=== PATIENT | female | born 1965 | race Native Hawaiian/Other Pacific Islander ===

== ENCOUNTER 2019-04-15 22:00 | Emergency (ER) | payer OTHER ==
[2019-04-16] MEDS ORDERED: NACL 0.9% 1000 ML 1,000 ML IV ONE ×2 (03:28→07:10)
[2019-04-16] MEDS ORDERED: MORPHINE IV ONE (03:28)
[2019-04-16] MEDS ORDERED: ZOFRAN IV ONE ×2 (03:28→07:10)
[2019-04-16 04:57] LABS: Basophils # (Auto) 0.1 K/mm3 (0.0-0.1); Basophils % (Auto) 0.4 % (0.0-1.8); Eosinophils % (Auto) 0.1 % (0.0-4.3); Hematocrit 39.8 % (30.3-42.9); Hemoglobin 12.8 gm/dl (10.1-14.3); Lymphocytes # (Auto) 1.1 K/mm3 (1.2-5.4); Lymphocytes % (Auto) 7.8 % (13.4-35.0); Mean Corpuscular HGB Conc 32 % (30-34); Mean Corpuscular Volume 84 fl (79-97); Monocytes # (Auto) 0.8 K/mm3 (0.0-0.8); Monocytes % (Auto) 5.4 % (0.0-7.3); Platelet Count 282 K/mm3 (140-440); Red Blood Count 4.74 M/mm3 (3.65-5.03); Red Cell Distribution Width 14.5 % (13.2-15.2)
[2019-04-16 05:32] LABS: Alanine Aminotransferase 14 units/L (7-56); Albumin 4.5 g/dL (3.9-5); BUN/Creatinine Ratio 34; Blood Urea Nitrogen 17 mg/dL (7-17); Calcium 9.3 mg/dL (8.4-10.2); Hemolysis Index 67
--- NOTE | 2019-04-16 05:57 | Cat Scan Report ---
PROCEDURE: CT ABDOMEN PELVIS W CON TECHNIQUE: Computerized axial tomography of the abdomen and pelvis was performed after the IV inject ion of iodinated nonionic contrast. CT DOSE LENGTH PRODUCT: mGycm HISTORY: abdominal pain, N/V COMPARISONS: None . FINDINGS: Visualized lower thorax: No significant abnormality. Liver: Normal size and attenuation. Spleen: Normal size and attenuation. Gallbladder and biliary system: Normal. Pancreas: Normal. Adrenals: Normal. Kidneys: There is moderate right-sided hydronephrosis with perinephric stranding secondary to a parti ally obstructing ovoid stone at the L4-5 level measuring 8 mm in diameter and 10 mm in length. There are no additional renal stones. The left kidney reveals a 1.7 cm benign cyst centrally.. GI tract: The bowel loops are normal in caliber and course. There is an anastomotic suture line and left-sided the abdomen. The appendix is not enlarged. . Lymph nodes and mesentery: Normal. Vasculature: Normal.. Bladder: Normal. Reproductive organs: Normal. Peritoneum: Hysterectomy.. Musculoskeletal structures: There is multilevel disc degeneration in the lower thoracic and lumbar sp ine.. Other: None . IMPRESSION: Moderate right-sided hydronephrosis secondary to a partially obstructing stone at the L4-5 level eva uring 8 mm in width and 10 mm in length. Normal appendix. Hysterectomy. 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 This document is electronically signed by Kj Perez MD., April 16 2019 05:55:03 AM ET
[2019-04-16] MEDS ORDERED: FLOMAX PO ONE (06:10)
[2019-04-16] MEDS ORDERED: ROCEPHIN/NS 1 GM/50 ML 1 GM/50 ML BAG IV ONE (06:10)
--- NOTE | 2019-04-16 06:42 | Emergency Department Report ---
<NITHIN IBARRA - Last Filed: 04/16/19 07:12> ED Abdominal Pain HPI - General Chief Complaint: Abdominal Pain Stated Complaint: Right flank pain that radiates to RLQ, Nausea and vomiting Time Seen by Provider: 04/16/19 03:20 Source: patient, family (daughter) Mode of arrival: Ambulatory Limitations: Language Barrier (daughter speaking for the patient) - History of Present Illness Initial Comments: Per family, patient is a 54-year-old female with a history of hypertension and hypothyroidism who presents to the ED with a complaint of acute onset persistent severe right flank pain that radiates to the right lower quadr ant and suprapubic area with persistent intermittent nausea and vomiting for the last 12 hours. Family states that the patient has not been able to keep anything down since the onset of symptoms, and that the patient's pain has worsened today and sent the patient has been crying and doubling down. Per family, patient has not had any dysuria, hematuria, urinary frequency and urgency, diarrhea, dizziness, headache, chest pain, shortness of breath, fever, chills, change in vision, traumatic injury, vaginal discharge, numbness and tingling of her lower extremities bilaterally or change in vision. MD Complaint: abdominal pain, flank pain (right flank) -: Sudden, hour(s) (12) Location: RLQ, suprapubic, R flank Radiation: RLQ, suprapubic, R flank Migration to: no migration Severity: severe Severity scale (0 -10): 8 Quality: cramping, aching, sharp Consistency: constant Improves With: nothing Worsens With: vomiting, movement Associated Symptoms: nausea, vomiting. denies: diarrhea, fever, chills, constipation, dysuria, hematemesis, hematochezia, melena, hematuria, anorexia, syncope - Related Data Home Medications Medication Instructions Recorded Confirmed Last Taken Levothyroxine Sodium [Synthroid] 200 mcg PO QAM 04/16/19 04/16/19 Unknown Losartan [Cozaar] 25 mg PO QDAY 04/16/19 04/16/19 Unknown Previous Rx's Medication Instructions Recorded Last Taken Type Ketorolac [Toradol] 10 mg PO Q6H PRN #12 tablet 04/16/19 Unknown Rx Ondansetron [Zofran Odt] 4 mg PO Q8HR PRN #20 tab.rapdis 04/16/19 Unknown Rx Sulfamethoxazole/Trimethoprim 1 each PO BID #14 tablet 04/16/19 Unknown Rx [Bactrim DS TAB] Tamsulosin [Flomax] 0.4 mg PO QDAY #5 cap 04/16/19 Unknown Rx oxyCODONE /ACETAMINOPHEN [Percocet 1 tab PO Q6HR PRN #12 tablet 04/16/19 Unknown Rx 5/325] Allergies Allergy/AdvReac Type Severity Reaction Status Date / Time No Known Allergies Allergy Verified 04/16/19 02:44 ED Review of Systems Constitutional: denies: chills, fever Eyes: denies: eye pain, eye discharge, vision change ENT: denies: ear pain, throat pain Respiratory: denies: cough, shortness of breath, wheezing Cardiovascular: denies: chest pain, palpitations Endocrine: no symptoms reported Gastrointestinal: abdominal pain (right flank), nausea, vomiting. denies: diarrhea, constipation, hematemesis Genitourinary: denies: urgency, dysuria, discharge Musculoskeletal: denies: back pain, joint swelling, arthralgia Skin: denies: rash, lesions Neurological: denies: headache, weakness, paresthesias Psychiatric: denies: anxiety, depression Hematological/Lymphatic: denies: easy bleeding, easy bruising ED Past Medical Hx - Past Medical History Previous Medical History?: Yes Hx Hypertension: Yes Additional medical history: Hypothyroidism - Medications Home Medications: Home Medications Medication Instructions Recorded Confirmed Last Taken Type Ketorolac [Toradol] 10 mg PO Q6H PRN #12 tablet 04/16/19 Unknown Rx Levothyroxine Sodium [Synthroid] 200 mcg PO QAM 04/16/19 04/16/19 Unknown History Losartan [Cozaar] 25 mg PO QDAY 04/16/19 04/16/19 Unknown History Ondansetron [Zofran Odt] 4 mg PO Q8HR PRN #20 tab.rapdis 04/16/19 Unknown Rx Sulfamethoxazole/Trimethoprim 1 each PO BID #14 tablet 04/16/19 Unknown Rx [Bactrim DS TAB] Tamsulosin [Flomax] 0.4 mg PO QDAY #5 cap 04/16/19 Unknown Rx oxyCODONE /ACETAMINOPHEN [Percocet 1 tab PO Q6HR PRN #12 tablet 04/16/19 Unknown Rx 5/325] ED Physical Exam - General Limitations: Language Barrier (Daughter present in the room and translating Micronesian for the patient into [place]) General appearance: alert, in no apparent distress - Head Head exam: Present: atraumatic, normocephalic, normal inspection - Eye Eye exam: Present: normal appearance, PERRL, EOMI. Absent: scleral icterus, conjunctival injection, nystagmus, periorbital swelling, periorbital tenderness Pupils: Present: normal accommodation - ENT ENT exam: Present: normal exam, normal orophraynx, mucous membranes moist, TM's normal bilaterally, normal external ear exam - Neck Neck exam: Present: normal inspection, full ROM. Absent: tenderness, lymphadenopathy - Respiratory Respiratory exam: Present: normal lung sounds bilaterally. Absent: respiratory distress, wheezes, rales, rhonchi, chest wall tenderness, accessory muscle use, prolonged expiratory - Cardiovascular Cardiovascular Exam: Present: regular rate, normal rhythm, normal heart sounds. Absent: systolic murmur, diastolic murmur, rubs, gallop - GI/Abdominal GI/Abdominal exam: Present: soft, tenderness (Right flank, RLQ tenderness), guarding, normal bowel sounds. Absent: distended, rebound, hyperactive bowel sounds, hypoactive bowel sounds, organomegaly, bruit, pulsatile mass - Rectal Rectal exam: Present: deferred - Extremities Exam Extremities exam: Present: normal inspection, full ROM, normal capillary refill - Back Exam Back exam: Present: normal inspection, tenderness (lumbosacral area tenderness). Absent: CVA tenderness (L), muscle spasm, paraspinal tenderness, vertebral tenderness - Neurological Exam Neurological exam: Present: alert, oriented X3, CN II-XII intact, normal gait, reflexes normal - Psychiatric Psychiatric exam: Present: normal affect, normal mood - Skin Skin exam: Present: warm, dry, intact, normal color. Absent: rash ED Course - Reevaluation(s) Reevaluation #1: 04/16/19 06:46 Patient is alert and oriented 3 and is not in any distress but pain. Vital signs are stable. Lab test results were reviewed and shows acute leukocytosis of 14,700, the rest of the lab test results are unremarkable. Abdomen pelvis CT scan with contrast shows a moderate right sided hydronephrosis with perinephric stranding secondary to a partially obstructing ovoid stone at the L4 to L5 level measuring 8 mm in width and 10 mm in length. No additional. The left kidney reveals a 1.7 cm benign cyst centrally. The appendix appears normal. Patient was treated for pain, also treated for nausea and vomiting, and also given Flomax 0.4 mg by mouth; and 1 L normal saline IV bolus in the ED and urinalysis results are pending. On reevaluation, patient's pain is well-controlled at this time. Pending urinalysis results patient case will be discussed with the urologist regional education manager for further disposition and plan. ED Medical Decision Making - Lab Data Result diagrams: 04/16/19 04:18 04/16/19 04:18 - Medical Decision Making Patient is alert and oriented 3 and is not in any distress but pain. Vital signs are stable. Lab test results were reviewed and shows acute leukocytosis of 14,700, the rest of the lab test results are unremarkable. Abdomen pelvis CT scan with contrast shows a moderate right sided hydronephrosis with perinephric stranding secondary to a partially obstructing ovoid stone at the L4 to L5 level measuring 8 mm in width and 10 mm in length. No additional. The left kidney reveals a 1.7 cm benign cyst centrally. The appendix appears normal. Patient was treated for pain, also treated for nausea and vomiting, and also given Flomax 0.4 mg by mouth; and 1 L normal saline IV bolus in the ED and urinalysis results are pending. On reevaluation, patient's pain is well-controlled at this time. Pending urinalysis results patient case will be discussed with the urologist regional education manager for further disposition and plan. 04/16/19 07:12 Patient care transferred to my colleague Ms. Vitaliy MERINO at shift change. She shall review the UA test results page the Urologist regional education manager, for possible admission. ED Disposition Clinical Impression: Acute abdominal pain in right flank, Nausea and vomiting in adult patient, Calculus of right kidney Disposition: - TO HOME OR SELFCARE Condition: Stable Instructions: Abdominal Pain (ED) Additional Instructions: Increase fluid intake to 2 L per day. Change diet to low-protein and a low-sodium diet to prevent reoccurrence. Strain urine to observe for passing stones. Follow-up with primary care doctor in 2-3 days. Follow-up with urology in 1-2 weeks for management of kidney stones. Prescriptions: Sulfamethoxazole/Trimethoprim [Bactrim DS TAB] 1 each PO BID #14 tablet Tamsulosin [Flomax] 0.4 mg PO QDAY #5 cap oxyCODONE /ACETAMINOPHEN [Percocet 5/325] 1 tab PO Q6HR PRN #12 tablet PRN Reason: Pain Ketorolac [Toradol] 10 mg PO Q6H PRN #12 tablet PRN Reason: Pain Ondansetron [Zofran Odt] 4 mg PO Q8HR PRN #20 tab.rapdis PRN Reason: Nausea Referrals: KAYLYN MARIANO MD [Primary Care Provider] - 3-5 Days DERRELL RICCI MD [Staff Physician] - 3-5 Days [facility] [Provider Group] - 3-5 Days Forms: Accompanied Note, Work/School Release Form(ED) <CHACKOARTEMIO TIA'SA - Last Filed: 04/16/19 09:01> ED Review of Systems ROS: Stated complaint: Right flank pain that radiates to RLQ, Nausea and vomiting Other details as noted in HPI ED Course - Reevaluation(s) Reevaluation #2: 04/16/19 08:05 Patient was received from [facility] pending urinalysis. The CT of abdomen and pelvis with contrast shows moderate right-sided hydronephrosis with perinephric stranding secondary to a partially obstructing ovoid stone at L4 to L5 level measuring 8 mm in width and 10 mm in length. A urinalysis is showing a urinary tract infection. The patient has been hydrated with normal saline 2 L of IV and given Rocephin 1 g IV while in the ER. I have paged urology and pending response. 04/16/19 08:06 04/16/19 08:[address] Ricci, Urology and stated patient is stable for outpatient surgery. Patient kidney function is normal. ED Medical Decision Making - Lab Data Result diagrams: 04/16/19 04:18 04/16/19 04:18 Lab Results 04/16/19 04/16/19 04/16/19 Range/Units 04:18 04:18 06:20 WBC 14.7 H (4.5-11.0) K/mm3 RBC 4.74 (3.65-5.03) M/mm3 Hgb 12.8 (10.1-14.3) gm/dl Hct 39.8 (30.3-42.9) % MCV 84 (79-97) fl MCH 27 L (28-32) pg MCHC 32 (30-34) % RDW 14.5 (13.2-15.2) % Plt Count 282 (140-440) K/mm3 Lymph % (Auto) 7.8 L (13.4-35.0) % [place] % (Auto) 5.4 (0.0-7.3) % Eos % (Auto) 0.1 (0.0-4.3) % Baso % (Auto) 0.4 (0.0-1.8) % Lymph # 1.1 L (1.2-5.4) K/mm3 [place] # 0.8 (0.0-0.8) K/mm3 Eos # 0.0 (0.0-0.4) K/mm3 Baso # 0.1 (0.0-0.1) K/mm3 Seg Neutrophils % 86.3 H (40.0-70.0) % Seg Neutrophils # 12.7 H (1.8-7.7) K/mm3 Sodium 142 (137-145) mmol/L Potassium 4.0 (3.6-5.0) mmol/L Chloride 104.4 (98-107) mmol/L Carbon Dioxide 21 L (22-30) mmol/L Anion Gap 21 mmol/L BUN 17 (7-17) mg/dL Creatinine 0.5 L (0.7-1.2) mg/dL Estimated GFR > 60 ml/min BUN/Creatinine Ratio 34 % Glucose 125 H (65-100) mg/dL Calcium 9.3 (8.4-10.2) mg/dL Total Bilirubin 0.50 (0.1-1.2) mg/dL AST 27 (5-40) units/L ALT 14 (7-56) units/L Alkaline Phosphatase 148 H (35-129) units/L Troponin T < 0.010 (0.00-0.029) ng/mL Total Protein 7.6 (6.3-8.2) g/dL Albumin 4.5 (3.9-5) g/dL Albumin/Globulin Ratio 1.5 % Lipase 14 (13-60) units/L Urine Color Yellow (Yellow) Urine Turbidity Slightly-cloudy (Clear) Urine pH 6.0 (5.0-7.0) Urine Protein <15 mg/dl (Negative) mg/dL Urine Glucose (UA) Neg (Negative) mg/dL Urine Ketones Neg (Negative) mg/dL Urine Blood Mod (Negative) Urine Nitrite Pos (Negative) Urine Bilirubin Neg (Negative) Urine Urobilinogen < 2.0 (<2.0) mg/dL Ur Leukocyte Esterase Lg (Negative) Urine WBC (Auto) 156.0 H (0.0-6.0) /HPF Urine RBC (Auto) 10.0 (0.0-6.0) /HPF U Epithel Cells (Auto) 1.0 (0-13.0) /HPF Urine Bacteria (Auto) 1+ (Negative) /HPF Urine Mucus Few /HPF - Radiology Data Radiology results: report reviewed PROCEDURE: CT ABDOMEN PELVIS W CON TECHNIQUE: Computerized axial tomography of the abdomen and pelvis was performed after the IV injection of iodinated nonionic contrast. CT DOSE LENGTH PRODUCT: mGycm HISTORY: abdominal pain, N/V COMPARISONS: None . FINDINGS: Visualized lower thorax: No significant abnormality. Liver: Normal size and attenuation. Spleen: Normal size and attenuation. Gallbladder and biliary system: Normal. Pancreas: Normal. Adrenals: Normal. Kidneys: There is moderate right-sided hydronephrosis with perinephric stranding secondary to a partially obstructing ovoid stone at the L4-5 level measuring 8 mm in diameter and 10 mm in length. There are no additional renal stones. The left kidney reveals a 1.7 cm benign cyst centrally.. GI tract: The bowel loops are normal in caliber and course. There is an anastomotic suture line and left-sided the abdomen. The appendix is not enlarged. . Lymph nodes and mesentery: Normal. Vasculature: Normal.. Bladder: Normal. Reproductive organs: Normal. Peritoneum: Hysterectomy.. Musculoskeletal structures: There is multilevel disc degeneration in the lower thoracic and lumbar spine.. Other: None . IMPRESSION: Moderate right-sided hydronephrosis secondary to a partially obstructing stone at the L4-5 level measuring 8 mm in width and 10 mm in length. Normal appendix. Hysterectomy. 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 - Medical Decision Making Patient was received from [facility] pending urinalysis. The CT of abdomen and pelvis with contrast shows moderate right-sided hydronephrosis with perinephric stranding secondary to a partially obstructing ovoid stone at L4 to L5 level measuring 8 mm in width and 10 mm in length. Consulted Dr. Ricci, Urology. Patient kidney function is normal and pain management controlled. Patient is stable for outpatient surgery. Patient will be started on Percocet, Flomax, Toradol, bactrim, and Zofran for renal stones. Referral to Urology for outpatient management. Patient instructed to call Dr. Ricci office this morning for an appointment. Discussed plan with patient and agreed to plan. Discharged home in stable condition. Follow up with PCP in 2-3 days. Critical care attestation.: If time is entered above; I have spent that time in minutes in the direct care of this critically ill patient, excluding procedure time. ED Disposition Is pt being admited?: No Does the pt Need Aspirin: No Time of Disposition: 08:57
[2019-04-16] MEDS ORDERED: TORADOL IV ONE (07:10)
[2019-04-16 07:20] LABS: Bacteria,Urine 1+ /HPF (Negative); Bilirubin,Urine NEG (Negative); Blood,Urine MOD (Negative); Color,Urine Yellow (Yellow); Mucus,Urine FEW /HPF; Protein,Urine <15 mg/dL mg/dL (Negative); Urobilinogen,Urine < 2.0 mg/dL (<2.0)
[2019-04-16] MEDS ORDERED: DILAUDID IV ONE (08:29)
[2019-04-16] MEDS ORDERED: TYLENOL PO ONE (09:39)
[2019-04-16 10:09] VITALS: BP 106/43
== END 2019-04-16 10:11 | disposition home or self-care (01) ==
LOC: ED 22:00
DX: N20.0 Calculus of kidney (principal); I10 Essential (primary) hypertension; E03.9 Hypothyroidism, unspecified
CPT/HCPCS: 36415; 74177; 80053; 81001; 83690; 84484; 85025; 93005; 93010; 96361; 96365; 96375; 96376; 99284; J0696; J1170; J1885; J2270; J2405; J7030; Q9967